=== PATIENT | female | born 1975 | race African-American/Black ===

== ENCOUNTER 2017-06-15 14:28 | Emergency (ER) | payer OTHER ==
[~2017-06-15] VITALS: Ht 165.1 cm; Wt 81.7 kg
[~2017-06-15 14:28] MED LIST: AZOR 10-40 MG1 EACH PO; CLONIDINE HCL0.1 M1 PO; FISH OIL 1,001000 M2 PO; FLINTSTONES1 EAC1 PO; HYDROCHLOROTHIA25 M1 PO; MULTIVITAM9 MG/15 M1 PO; NORVASC10 MG PO; TRAMADOL 50 MG50 MG PO
[2017-06-15 15:28] VITALS: BP 173/93
== END 2017-06-15 15:28 | disposition home or self-care (01) ==
LOC: ER 14:28
DX: R04.0 Epistaxis (principal); I10 Essential (primary) hypertension; J45.909 Unspecified asthma, uncomplicated; Z90.89 Acquired absence of other organs; F17.210 Nicotine dependence, cigarettes, uncomplicated